=== PATIENT | female | born 2000 | race African-American/Black ===

== ENCOUNTER 2024-10-02 15:26 | Emergency (ER) | payer OTHER ==
[~2024-10-02] VITALS: Ht 165.1 cm; Wt 72.7 kg
[2024-10-02 15:38] VITALS: O2SAT 100
[2024-10-02] MEDS: KETOROLAC 30MG/ML VIAL IV STA (17:39)
[2024-10-02] MEDS: DIPHENHYDRAMINE 50MG/ML VIAL IV ONE (17:45)
[2024-10-02] MEDS: FAMOTIDINE 20MG/2ML VIAL IV ONE (17:45)
[2024-10-02] MEDS: METOCLOPRAMIDE HCL 10MG/2ML VIAL IV ONE (17:45)
[2024-10-02 18:03] LABS: HEMATOCRIT. 40.9 % (36.0-48.0); HEMOGLOBIN. 13.4 g/dL (12.0-16.0); MEAN CORPUSCULAR HEMOGLOBIN 30.5 pg (28.0-32.0); MEAN CORPUSCULAR HGB CONC 32.9 g/dL (31.0-37.0); MEAN CORPUSCULAR VOLUME 92.7 fL (81.0-99.0); MEAN PLATELET VOLUME 9.1 fl (7.4-10.4); PLATELET 178 x1000/uL (130-400); RED BLOOD CELL COUNT 4.41 mill/uL (4.2-5.4); RED CELL DISTRIBUTION WIDTH 13.1 % (11.6-14.6)
[2024-10-02 18:09] LABS: DIFFERENTIAL COMMENT 1
[2024-10-02 18:11] LABS: CARBON DIOXIDE 24 mEq/L (21-32); CHLORIDE 104 mEq/L (98-107); POTASSIUM 3.7 mEq/L (3.5-5.1); SODIUM 137 mEq/L (136-145)
[2024-10-02 18:12] LABS: CALCIUM 9.3 mg/dL (8.7-10.4)
[2024-10-02 18:17] LABS: CREATININE 0.8 mg/dL (0.6-1.0); GLUCOSE 104 mg/dL (70-105); UREA NITROGEN BLOOD 13 mg/dL (9-23)
[2024-10-02 18:18] LABS: ALANINE AMINOTRANSFERASE 189 IU/L (10-49)
[2024-10-02 18:19] LABS: ALBUMIN 4.5 g/dL (3.2-4.8); ASPARTATE AMINOTRANSFERASE 278 IU/L (<34); BILIRUBIN DIRECT 0.3 mg/dL (<=3.0); BILIRUBIN TOTAL 0.8 mg/dL (0.1-1.0); PROTEIN TOTAL 7.5 g/dL (6.0-8.3)
[2024-10-02 18:20] LABS: HCG SCREEN NEGATIVE
[2024-10-02 18:24] LABS: TROPONIN I HIGH SENSITIVITY < 4 ng/L (3.0-34)
[2024-10-02] MEDS: SODIUM CHLORIDE 0.9% 1,000 ML IV ONE (18:40)
[2024-10-02 18:47] LABS: PLATELET ESTIMATE NORMAL
[2024-10-02] MEDS: KETOROLAC 15MG/ML VIAL IV ONE (21:09)
[2024-10-02 21:31] LABS: CLARITY URINE CLEAR (CLEAR); COLOR URINE YELLOW (YELLOW); GLUCOSE URINE NEGATIVE (NEGATIVE); KETONES URINE NEGATIVE (NEGATIVE); LEUKOCYTE ESTERASE URINE NEGATIVE (NEGATIVE); NITRITE URINE NEGATIVE (NEGATIVE); OCCULT BLOOD URINE 1+ (NEGATIVE); PH URINE 5.5 (4.5-8.0); PROTEIN URINE NEGATIVE (NEGATIVE); SPECIFIC GRAVITY URINE 1.021 (1.005-1.030); UROBILINOGEN URINE 0.2 E.U./dL (0.2-1.0)
[2024-10-02 21:51] LABS: BACTERIA URINE NONE SEEN; RBC URINE 0-2 /hpf (0-2); SQUAMOUS EPITHELIAL CELL URINE RARE /lpf (RARE/1+); WBC URINE NONE SEEN /hpf (0-2)
[2024-10-02 22:50] VITALS: BP 116/50; PULSE 106; RESP 18; TEMP 37.1; O2SAT 99
[2024-10-02] MEDS ORDERED: IBUP-2028 MT (23:00)
[2024-10-02] MEDS: ACETAMINOPHEN 325MG TABLET PO ONE (23:07)
== END 2024-10-02 23:10 | disposition home or self-care (01) ==
LOC: ER 15:26
DX: R51.9 Headache, unspecified (principal); R10.13 Epigastric pain; R07.89 Other chest pain; Z20.822 Contact with and (suspected) exposure to COVID-19
CPT/HCPCS: 80076; 80048; 81003; 81025; 84703; 83690; 85025; 84484; 36415; 71045; 70450; 74176; 93005; 96361; 96374; 96375; 96376; 99285; 87426; J1200; J3490; J1885 ×2; J2765; J7030; Z7610 ×3